=== PATIENT | male | born 1950 | race Caucasian/White ===

== ENCOUNTER 2018-03-13 07:07 | Outpatient (CLI) | payer MEDICARE, MEDICAID, SELFPAY ==
[2018-03-13 09:10] LABS: Anion Gap 11.9 mmol/L (3-11); CO2 23.1 mmol/L (21.0-32.0); CREATININE 3.47 mg/dL (0.70-1.30); Calcium 9.3 mg/dL (8.5-10.1); Chloride 108 mmol/L (98-107); Estimated GFR 17.84 (mL/min/1.73m2); Glucose 281 mg/dL (70-100); Potassium 4.4 mmol/L (3.5-5.1); Sodium 143 mmol/L (136-145)
[2018-03-13 09:16] LABS: BUN 83 mg/dL (7-18)
== END 2018-03-13 07:27 ==
PROVIDERS: PCP Internal Medicine; Visit Provider Internal Medicine
DX: N18.4 Chronic kidney disease, stage 4 (severe) (principal); I10 Essential (primary) hypertension
CPT/HCPCS: 36415; 80048

== ENCOUNTER 2018-04-23 09:01 | Outpatient (REF) | payer MEDICARE, MEDICAID, SELFPAY ==
[2018-04-23 14:38] LABS: Anion Gap 13.4 mmol/L (3-11); CO2 22.6 mmol/L (21.0-32.0); Calcium 10.3 mg/dL (8.5-10.1); Chloride 107 mmol/L (98-107); Estimated GFR 16.78 (mL/min/1.73m2); Glucose 237 mg/dL (70-100); Potassium 4.6 mmol/L (3.5-5.1); Sodium 143 mmol/L (136-145)
[2018-04-23 14:50] LABS: BUN 101 mg/dL (7-18); CREATININE 3.66 mg/dL (0.70-1.30)
== END 2018-04-23 09:21 ==
LOC: NCHCN 09:01
PROVIDERS: PCP Internal Medicine; Visit Provider Internal Medicine Nephrology
DX: N18.4 Chronic kidney disease, stage 4 (severe) (principal)
CPT/HCPCS: 80048

== ENCOUNTER 2018-05-20 23:03 | Emergency (ER) | payer MEDICARE, MEDICAID, SELFPAY ==
[2018-05-20 23:01] VITALS: BP 119/58; PULSE 53; PULSE 56; RESP 19; O2SAT 91
[2018-05-20 23:04] VITALS: BP 119/58; PULSE 55; RESP 18; TEMP 35.9; O2SAT 91
--- NOTE | 2018-05-20 23:07 | W.ED.GENAD ---
Discharge Plan Disposition Patient Disposition: [facility] Condition: Critical Discharge Details Chief Complaint: AMS/LOC Clinical Impression: Non-ST elevation [place] (NSTEMI) Reason For Visit: HELENA Primary Care Provider: Perico Pacheco ED Provider: Kennedy Magallon Home Meds and New Rx's Prescriptions: No Action amlodipine 10 MG tablet 10 mg PO DAILY RF: 0 aspirin 81 MG tablet,delayed release (DR/EC) 81 mg PO DAILY RF: 0 furosemide 40 MG tablet 80 mg PO BID RF: 0 isosorbide mononitrate 30 MG tablet extended release 24 hr 30 mg PO DAILY RF: 0 travoprost [Travatan Z] 2.5 ML drops 1 drp Topical HS RF: 0 allopurinol 100 MG tablet 200 mg PO HS RF: 0 calcitriol 0.5 MCG capsule 0.5 mcg PO DAILY RF: 0 insulin aspart U-100 [Novolog PenFill U-100 Insulin] 100 UNIT/ML cartridge 6 - 12 units SQ AC RF: 0 acetaminophen [Mapap Extra Strength] 500 MG tablet 1 g PO Q6H PRN PRNRF: 0 nitroglycerin [Nitrostat] 0.4 MG tablet, sublingual 0.4 mg Sublingual PRN PRNRF: 0 carvedilol 25 MG tablet 25 mg PO BID RF: 0 clopidogrel [Plavix] 75 MG tablet 75 mg PO DAILY RF: 0 doxazosin 8 MG tablet 8 mg PO DAILY RF: 0 ferrous sulfate 325 MG tablet 325 mg PO DAILY RF: 0 epinephrine 0.3 MG/SYR auto-injector 0.3 mg IM PRN PRNRF: 0 insulin glargine [Lantus U-100 Insulin] 100 UNITS/ML solution 65 units SQ DAILY Qty: 0 RF: 0 atorvastatin [Lipitor] 80 MG tablet 80 mg PO HS RF: 0 acetaminophen-codeine [Tylenol-Codeine #3] 1 TAB tablet 1 tab PO Q4H PRN (Reason: Pain) Qty: 8 RF: 0 lisinopril 10 mg Tablet 10 mg PO BID RF: 0 insulin detemir U-100 [Levemir FlexTouch U-100 Insuln] 100 unit/mL (3 mL) Insulin Pen 90 unit subcut DAILY RF: 0 ticagrelor [Brilinta] 90 mg Tablet 90 mg PO BID RF: 0 Medical Decision Making 67-year-old male presents from home. His states that he went to bed after having an essentially normal day, then awoke stated that he did not feel well, became profoundly diaphoretic, complained of shortness of breath, and then developed garbled speech. As per my HPI, EMS was called, the patient was found to be hypoglycemic and was given D50 en route. His past medical history is notable for coronary artery disease, CVA, recent admission to [facility] with placement of a drug-eluting stent for which she was discharged home at the end of April. His states that since discharge the patient has had frequent episodes of chest pain He arrives with eye opening to verbal command, inappropriate words, moving extremities to command and GCS graded at 11-12. Patient given an additional 50 cc of D10, 500 cc normal saline fluid bolus, referred for CT scan of the head to rule out intracranial hemorrhage, as well as chest x-ray and laboratories. His EKG shows territorial ST segment depressions in leads I, aVL, V4 through V6. Question subtle ST segment elevations in the inferior leads. Patient given aspirin and started on heparin drip. Patients speech improved with correction of hypoglycemia. He complains of bilateral calf cramps for which I have ordered magnesium. CT scan of the head is unremarkable as is CXR. Labs reveal a positive troponin, BUN 111, creatinine 4. Glucose 60. Initiated [facility] [place] approximately 2345h. Repeat EKG reveals some ST segment elevation lead III. Case discussed with on-call cardiology and patient accepted in transfer to Dr. Witt's service. Patient and family informed of need for transfer. They state he wishes to be full code. The patient has had some progressive bradycardia and will start on dobutamine drip. Lab Data Lab results reviewed: Yes I reviewed the patient's lab results. Laboratory Results - last 24 hr 05/20/18 05/20/18 23:31 23:31 WBC 8.79 RBC 4.02 L Hgb 11.5 L Hct 34.9 L MCV 86.8 MCH 28.6 MCHC 33.0 RDW 15.8 H Plt Count 197 MPV 11.6 H Immature Gran % 0.6 Neutrophils % 80.3 Lymphocytes % 8.1 Monocytes % 8.0 Eosinophils % 2.8 Basophils % 0.2 Absolute Neutrophils 7.06 H Absolute Lymphocytes 0.71 L Absolute Monocytes 0.70 Absolute Eosinophils 0.25 Absolute Basophils 0.02 Sodium 142 Potassium 3.8 Chloride 105 Carbon Dioxide 24.6 Anion Gap 12.4 H BUN 111 H* Creatinine 4.06 H* Estimated GFR/1.73 m2 14.89 Glucose 60 L Calcium 10.6 H Magnesium 2.4 Total Bilirubin 0.4 ALT 24 Alkaline Phosphatase 82 Troponin I 0.12 H Total Protein 7.4 Albumin 3.8 ECG Data Attestation: I personally reviewed and interpreted this ECG (s) as follows: Prior ECG tracings: available for review Interpretation: Probable sinus bradycardia with a rate of 54, LVH present, ST segment depression in leads I, aVL, V4 through V6 compared to tracing from February 13, 2017, ST segment depressions are new HPI General Mode of arrival: EMS. Date/Time Provider Initiated Documentation: 05/20/18 23:10. Limitations to Documentation: altered mental status. Information obtained by: patient and EMS. History of Present Illness 67 year old M presents to the emergency department with the chief complaint of Mental status changes and garbled speech, described as moderate, Quality is described as constant, Patient started experiencing this hour(s) and it has been other (Improving). other things that improve symptom(s), (Glucose) HPI Narrative: 67-year-old male who lives at home in [place]. He is brought via EMS. They report that he awoke approximately 1030 and was noted to have some mild slurring of speech and agitation. This worsened. EMS was called, they found her to have a blood glucose of 20 and administered glucose en route with improvement of the patient's symptoms. There is no report of fall. Patient has a history of CVA as well as coronary artery disease and recently had stent placement Related Data Home Medications Medication Instructions Recorded Confirmed allopurinol 200 mg PO HS 06/21/13 05/20/18 amlodipine 10 mg PO DAILY 06/21/13 05/20/18 aspirin 81 mg PO DAILY 06/21/13 05/20/18 calcitriol 0.5 mcg PO DAILY 06/21/13 05/20/18 furosemide 80 mg PO BID 06/21/13 05/20/18 insulin aspart U-100 [Novolog 6 - 12 units SQ AC 06/21/13 05/20/18 PenFill U-100 Insulin] isosorbide mononitrate 30 mg PO DAILY 06/21/13 05/20/18 travoprost [Travatan Z] 1 drp TOPICAL HS 06/21/13 05/20/18 acetaminophen [Mapap Extra 1 g PO Q6H PRN PRN 06/26/13 02/13/17 Strength] carvedilol 25 mg PO BID 03/20/16 05/20/18 clopidogrel [Plavix] 75 mg PO DAILY 03/20/16 02/13/17 doxazosin 8 mg PO DAILY 03/20/16 05/20/18 epinephrine 0.3 mg IM PRN PRN 03/20/16 05/20/18 ferrous sulfate 325 mg PO DAILY 03/20/16 05/20/18 insulin glargine [Lantus U-100 65 units SQ DAILY #0 03/20/16 02/13/17 Insulin] nitroglycerin [Nitrostat] 0.4 mg SUBLINGUAL PRN PRN 03/20/16 05/20/18 acetaminophen-codeine 1 tab PO Q4H PRN #8 tab 01/20/17 02/13/17 [Tylenol-Codeine #3] atorvastatin [Lipitor] 80 mg PO HS 01/20/17 05/20/18 insulin detemir U-100 [Levemir 90 unit SUBCUT DAILY 05/20/18 05/20/18 FlexTouch U-100 Insuln] lisinopril 10 mg PO BID 05/20/18 05/20/18 ticagrelor [Brilinta] 90 mg PO BID 05/20/18 05/20/18 Previous Rx's Medication Instructions Recorded insulin glargine [Lantus U-100 65 units SQ DAILY #0 03/20/16 Insulin] acetaminophen-codeine 1 tab PO Q4H PRN #8 tab 01/20/17 [Tylenol-Codeine #3] Allergies Allergy/AdvReac Type Severity Reaction Status Date / Time amoxicillin Allergy Severe Swelling/Ed Unverified 05/20/18 23:13 katia insect stings Allergy Severe Uncoded 05/20/18 23:13 Review of Systems Review of Systems Unobtainable due to mental condition PFSH Social History Smoking/Tobacco Use Status: Never Exam Narrative Exam Narrative: GEN: Positive voice. Positive gag reflex, slurred speech HEAD: Normocephalic, atraumatic ENT: Mucous membranes moist, oropharynx unremarkable, External ear exam unremarkable EYES: PERRL, EOMI NECK: Full ROM, no JOSÉ LUIS, no menigismus CHEST/RESP: Nontender, clear to auscultation bilateral, no wheeze/rhonchi/rales CARDIOVASCULAR: Regular, bradycardic, 2 out of 6 systolic ejection murmur, rub cesar. 2+ Rad pulse bilateral ABDOMEN: Soft, nontender, no mass. +Bowel sounds. Areas of anterior abdominal wall ecchymosis consistent with subcutaneous administration of medications EXT: Full ROM, no edema, no rash. Muscular spasm/cramps bilateral legs. Neuro: Patient has positive gag reflex. Opens eyes to voice. Speech is slurred. He is able to raise both arms off the bed. No obvious facial droop Psych: Speech slurred l Critical Care Time Total Critical Care Time: 60
--- NOTE | 2018-05-20 23:10 | ED.GENADUL_ITS ---
Discharge Plan Disposition Patient Disposition: [facility] Condition: Critical Discharge Details Chief Complaint: AMS/LOC Clinical Impression: Non-ST elevation [place] (NSTEMI) Reason For Visit: HELENA Primary Care Provider: Perico Pacheco ED Provider: Kennedy Magallon Home Meds and New Rx's Prescriptions: No Action amlodipine 10 MG tablet 10 mg PO DAILY RF: 0 aspirin 81 MG tablet,delayed release (DR/EC) 81 mg PO DAILY RF: 0 furosemide 40 MG tablet 80 mg PO BID RF: 0 isosorbide mononitrate 30 MG tablet extended release 24 hr 30 mg PO DAILY RF: 0 travoprost [Travatan Z] 2.5 ML drops 1 drp Topical HS RF: 0 allopurinol 100 MG tablet 200 mg PO HS RF: 0 calcitriol 0.5 MCG capsule 0.5 mcg PO DAILY RF: 0 insulin aspart U-100 [Novolog PenFill U-100 Insulin] 100 UNIT/ML cartridge 6 - 12 units SQ AC RF: 0 acetaminophen [Mapap Extra Strength] 500 MG tablet 1 g PO Q6H PRN PRNRF: 0 nitroglycerin [Nitrostat] 0.4 MG tablet, sublingual 0.4 mg Sublingual PRN PRNRF: 0 carvedilol 25 MG tablet 25 mg PO BID RF: 0 clopidogrel [Plavix] 75 MG tablet 75 mg PO DAILY RF: 0 doxazosin 8 MG tablet 8 mg PO DAILY RF: 0 ferrous sulfate 325 MG tablet 325 mg PO DAILY RF: 0 epinephrine 0.3 MG/SYR auto-injector 0.3 mg IM PRN PRNRF: 0 insulin glargine [Lantus U-100 Insulin] 100 UNITS/ML solution 65 units SQ DAILY Qty: 0 RF: 0 atorvastatin [Lipitor] 80 MG tablet 80 mg PO HS RF: 0 acetaminophen-codeine [Tylenol-Codeine #3] 1 TAB tablet 1 tab PO Q4H PRN (Reason: Pain) Qty: 8 RF: 0 lisinopril 10 mg Tablet 10 mg PO BID RF: 0 insulin detemir U-100 [Levemir FlexTouch U-100 Insuln] 100 unit/mL (3 mL) Insulin Pen 90 unit subcut DAILY RF: 0 ticagrelor [Brilinta] 90 mg Tablet 90 mg PO BID RF: 0 Medical Decision Making 67-year-old male presents from home. His states that he went to bed after having an essentially normal day, then awoke stated that he did not feel well, became profoundly diaphoretic, complained of shortness of breath, and then developed garbled speech. As per my HPI, EMS was called, the patient was found to be hypoglycemic and was given D50 en route. His past medical history is notable for coronary artery disease, CVA, recent admission to [facility] with placement of a drug-eluting stent for which she was discharged home at the end of April. His states that since discharge the patient has had frequent episodes of chest pain He arrives with eye opening to verbal command, inappropriate words, moving extremities to command and GCS graded at 11-12. Patient given an additional 50 cc of D10, 500 cc normal saline fluid bolus, referred for CT scan of the head to rule out intracranial hemorrhage, as well as chest x-ray and laboratories. His EKG shows territorial ST segment depressions in leads I, aVL, V4 through V6. Question subtle ST segment elevations in the inferior leads. Patient given aspirin and started on heparin drip. Patients speech improved with correction of hypoglycemia. He complains of bilateral calf cramps for which I have ordered magnesium. CT scan of the head is unremarkable as is CXR. Labs reveal a positive troponin, BUN 111, creatinine 4. Glucose 60. Initiated [facility] [place] cardiology consult approximately 2345h. Repeat EKG reveals some ST segment elevation lead III. Case discussed with on-call cardiology and patient accepted in transfer to Dr. Witt's service. Patient and family informed of need for transfer. They state he wishes to be full code. The patient has had some progressive bradycardia and will start on dobutamine drip. Lab Data Lab results reviewed: Yes I reviewed the patient's lab results. Laboratory Results - last 24 hr 05/20/18 05/20/18 23:31 23:31 WBC 8.79 RBC 4.02 L Hgb 11.5 L Hct 34.9 L MCV 86.8 MCH 28.6 MCHC 33.0 RDW 15.8 H Plt Count 197 MPV 11.6 H Immature Gran % 0.6 Neutrophils % 80.3 Lymphocytes % 8.1 Monocytes % 8.0 Eosinophils % 2.8 Basophils % 0.2 Absolute Neutrophils 7.06 H Absolute Lymphocytes 0.71 L Absolute Monocytes 0.70 Absolute Eosinophils 0.25 Absolute Basophils 0.02 Sodium 142 Potassium 3.8 Chloride 105 Carbon Dioxide 24.6 Anion Gap 12.4 H BUN 111 H* Creatinine 4.06 H* Estimated GFR/1.73 m2 14.89 Glucose 60 L Calcium 10.6 H Magnesium 2.4 Total Bilirubin 0.4 ALT 24 Alkaline Phosphatase 82 Troponin I 0.12 H Total Protein 7.4 Albumin 3.8 ECG Data Attestation: I personally reviewed and interpreted this ECG (s) as follows: Prior ECG tracings: available for review Interpretation: Probable sinus bradycardia with a rate of 54, LVH present, ST segment depression in leads I, aVL, V4 through V6 compared to tracing from February 13, 2017, ST segment depressions are new HPI General Mode of arrival: EMS . Date/Time Provider Initiated Documentation: 05/20/18 23:10 . Limitations to Documentation: altered mental status . Information obtained by: patient and EMS . History of Present Illness 67 year old M presents to the emergency department with the chief complaint of Mental status changes and garbled speech, described as moderate, Quality is described as constant, Patient started experiencing this hour(s) and it has been other (Improving). other things that improve symptom(s), (Glucose) HPI Narrative: 67-year-old male who lives at home in [place]. He is brought via EMS. They report that he awoke approximately 1030 and was noted to have some mild slurring of speech and agitation. This worsened. EMS was called, they found her to have a blood glucose of 20 and administered glucose en route with improvement of the patient's symptoms. There is no report of fall. Patient has a history of CVA as well as coronary artery disease and recently had stent placement Related Data Home Medications Medication Instructions Recorded Confirmed allopurinol 200 mg PO HS 06/21/13 05/20/18 amlodipine 10 mg PO DAILY 06/21/13 05/20/18 aspirin 81 mg PO DAILY 06/21/13 05/20/18 calcitriol 0.5 mcg PO DAILY 06/21/13 05/20/18 furosemide 80 mg PO BID 06/21/13 05/20/18 insulin aspart U-100 [Novolog 6 - 12 units SQ AC 06/21/13 05/20/18 PenFill U-100 Insulin] isosorbide mononitrate 30 mg PO DAILY 06/21/13 05/20/18 travoprost [Travatan Z] 1 drp TOPICAL HS 06/21/13 05/20/18 acetaminophen [Mapap Extra 1 g PO Q6H PRN PRN 06/26/13 02/13/17 Strength] carvedilol 25 mg PO BID 03/20/16 05/20/18 clopidogrel [Plavix] 75 mg PO DAILY 03/20/16 02/13/17 doxazosin 8 mg PO DAILY 03/20/16 05/20/18 epinephrine 0.3 mg IM PRN PRN 03/20/16 05/20/18 ferrous sulfate 325 mg PO DAILY 03/20/16 05/20/18 insulin glargine [Lantus U-100 65 units SQ DAILY #0 03/20/16 02/13/17 Insulin] nitroglycerin [Nitrostat] 0.4 mg SUBLINGUAL PRN PRN 03/20/16 05/20/18 acetaminophen-codeine 1 tab PO Q4H PRN #8 tab 01/20/17 02/13/17 [Tylenol-Codeine #3] atorvastatin [Lipitor] 80 mg PO HS 01/20/17 05/20/18 insulin detemir U-100 [Levemir 90 unit SUBCUT DAILY 05/20/18 05/20/18 FlexTouch U-100 Insuln] lisinopril 10 mg PO BID 05/20/18 05/20/18 ticagrelor [Brilinta] 90 mg PO BID 05/20/18 05/20/18 Previous Rx's Medication Instructions Recorded insulin glargine [Lantus U-100 65 units SQ DAILY #0 03/20/16 Insulin] acetaminophen-codeine 1 tab PO Q4H PRN #8 tab 01/20/17 [Tylenol-Codeine #3] Allergies Allergy/AdvReac Type Severity Reaction Status Date / Time amoxicillin Allergy Severe Swelling/Ed Unverified 05/20/18 23:13 katia insect stings Allergy Severe Uncoded 05/20/18 23:13 Review of Systems Review of Systems Unobtainable due to mental condition PFSH Social History Smoking/Tobacco Use Status: Never Exam Narrative Exam Narrative: GEN: Positive voice. Positive gag reflex, slurred speech HEAD: Normocephalic, atraumatic ENT: Mucous membranes moist, oropharynx unremarkable, External ear exam unremarkable EYES: PERRL, EOMI NECK: Full ROM, no JOSÉ LUIS, no menigismus CHEST/RESP: Nontender, clear to auscultation bilateral, no wheeze/rhonchi/rales CARDIOVASCULAR: Regular, bradycardic, 2 out of 6 systolic ejection murmur, rub cesar. 2+ Rad pulse bilateral ABDOMEN: Soft, nontender, no mass. +Bowel sounds. Areas of anterior abdominal wall ecchymosis consistent with subcutaneous administration of medications EXT: Full ROM, no edema, no rash. Muscular spasm/cramps bilateral legs. Neuro: Patient has positive gag reflex. Opens eyes to voice. Speech is slurred. He is able to raise both arms off the bed. No obvious facial droop Psych: Speech slurred l Critical Care Time Total Critical Care Time: 60
[2018-05-20 23:20] VITALS: BP 113/54; PULSE 47; PULSE 54; RESP 18; O2SAT 94
--- NOTE | 2018-05-20 23:22 | DI.RAD_ITS ---
SYMPTOM/DIAGNOSIS: MS CHANGES CHEST X-RAY: Portable AP view. The heart appears enlarged. The patient is status post CABG. The lungs are clear. No effusions or pneumothoraces are identified. IMPRESSION: Apparent cardiomegaly. This may in part be due to the patient positioning and technique. The lungs are clear.
--- NOTE | 2018-05-20 23:25 | DI.CT_ITS ---
SYMPTOM/DIAGNOSIS: PREV CVA. MS CHANGES, GARBLED SPEECH CT BRAIN: Noncontrast. Comparison 02/13/17 Age related cerebral atrophy and small vessel ischemic disease are present. Old lacunar infarcts are seen in the left basal ganglia. No acute hemorrhage, infarct, midline shift or mass effect is identified. The calvarium is intact. There is mild mucosal thickening in the left maxillary sinus. Remaining visualized nasal sinuses are clear. IMPRESSION: No acute intracranial process.
[2018-05-20 23:31] VITALS: BP 119/55; PULSE 47; PULSE 49; RESP 18; O2SAT 95
--- NOTE | 2018-05-20 23:33 | DI.VRAD_ITS ---
EXAM: XR Chest, 1 View EXAM DATE/TIME: 05/20/2018 11:27 PM CLINICAL HISTORY: 67 years old, male; Pain; Chest pain; On breathing; Patient HX: Ms changes. TECHNIQUE: XR of the chest, 1 view. COMPARISON: CR PORTABLE CHEST ONE VIEW 02/13/2017 1:11 PM FINDINGS: Lungs: Unremarkable. No consolidation. Pleural space: Unremarkable. No pleural effusion. No pneumothorax. Heart/Mediastinum: Cardiac enlargement, new from prior. Bones/joints: Status post median sternotomy. Chronic osseous changes. IMPRESSION: Cardiac enlargement. Dictated and Authenticated by: Bobo Arellano MD. Ordering:FREDI ATKINS MD
--- NOTE | 2018-05-20 23:38 | DI.VRAD_ITS ---
EXAM: CT Head Without Intravenous Contrast EXAM DATE/TIME: 05/20/2018 11:26 PM CLINICAL HISTORY: 67 years old, male; Signs and symptoms; Other: Ms changes TECHNIQUE: Axial computed tomography images of the head/brain without intravenous contrast. All CT scans at this facility use at least one of these dose optimization techniques: automated exposure control; mA and/or kV adjustment per patient size (includes targeted exams where dose is matched to clinical indication); or iterative reconstruction. Coronal and sagittal reformatted images were created and reviewed. COMPARISON: No relevant prior studies available. FINDINGS: Brain: Mild age-related involutional changes of the brain are present. Scattered white matter hypodensities likely correspond to changes from multiple sclerosis as reported in the history, and/or chronic microangiopathy. No hemorrhage or midline shift. Ventricles: Normal. No ventriculomegaly. Bones/joints: Normal. No acute fracture. Sinuses: Normal as visualized. No acute sinusitis. Mastoid air cells: Left mastoid air cells are non-pneumatized. Soft tissues: Normal. Vasculature: Atherosclerosis. IMPRESSION: No acute intracranial findings. Dictated and Authenticated by: Bobo Arellano MD. Ordering:FREDI ATKINS MD
[2018-05-20 23:39] LABS: Abs Immature Grans 0.05 k/cumm (0.0-0.09); Absolute Basophil Count 0.02 k/cumm (0.0-0.2); Absolute Eosinophil Count 0.25 k/cumm (0.0-0.7); Absolute Lymphocyte Count 0.71 k/cumm (1.2-3.4); Absolute Neutrophil Count 7.06 k/cumm (1.2-6.7); Basophils % 0.2; Eosinophils % 2.8; HCT 34.9 % (40.0-50.0); HGB 11.5 g/dL (13.5-17.5); Immature Grans % 0.6; Lymphocytes % 8.1; Mean Corpuscular Hemoglobin 28.6 pg (27.0-33.0); Mean Corpuscular Volume 86.8 fL (80-95); Mean Platelet Volume 11.6 fL (8.0-11.0); Neutrophils % 80.3; Platelet Count 197 x1000/uL (130-400); RBC 4.02 m/cumm (4.50-6.00); RBC Distribution Width 15.8 % (11.8-14.1); White Blood Cell Count 8.79 k/cumm (4.4-10.8)
[2018-05-20 23:46] VITALS: BP 118/53; PULSE 44; PULSE 50; RESP 15; O2SAT 97
[2018-05-20] MEDS: MAGNESIUM SULFATE 2 GM/50 ML BAG IVPB (23:50)
[2018-05-20] MEDS: Normal Saline 1,000 ML 500 ML IV (23:51)
[2018-05-20] MEDS: DEXTROSE 5%-0.45% SALINE 1,000 ML 125 ML IV (23:52)
[2018-05-20 23:54] LABS: ALT 24 U/L (12-78); Albumin 3.8 g/dL (3.4-5.0); Alkaline Phosphatase 82 U/L (46-116); Anion Gap 12.4 mmol/L (3-11); Bilirubin, Total 0.4 mg/dL (0.2-1.0); CO2 24.6 mmol/L (21.0-32.0); Calcium 10.6 mg/dL (8.5-10.1); Chloride 105 mmol/L (98-107); Estimated GFR 14.89 (mL/min/1.73m2); Glucose 60 mg/dL (70-100); Magnesium 2.4 mg/dL (1.8-2.4); Potassium 3.8 mmol/L (3.5-5.1); Sodium 142 mmol/L (136-145); Total Protein 7.4 g/dL (6.4-8.2)
[2018-05-20 23:55] LABS: BUN 111 mg/dL (7-18); Troponin I 0.12 ng/mL (0.00-0.06)
[2018-05-20 23:56] LABS: CREATININE 4.06 mg/dL (0.70-1.30)
[2018-05-21] VITALS (28 sets, daily range): BP systolic 109–137; BP diastolic 43–54; PULSE 38–56; RESP 14–18; TEMP 36; O2SAT 2–99
[2018-05-21 00:01] LABS: NT-proBNP 2592 pg/mL
[2018-05-21 00:06] LABS: AST 32 U/L (15-37)
[2018-05-21] MEDS: Aspirin 81 MG CHEW (00:12)
[2018-05-21 00:40] LABS: PTT Activated 22.7 sec (21.0-31.4)
[2018-05-21] MEDS: DEXTROSE 10%-WATER 500 ML 50 ML IV (00:47)
== END 2018-05-21 03:00 | disposition short-term general hospital (02) ==
PROVIDERS: Emergency Provider Emergency Medicine; PCP Internal Medicine
DX: I21.4 Non-ST elevation (NSTEMI) myocardial infarction (principal); E11.649 Type 2 diabetes mellitus with hypoglycemia without coma; R00.1 Bradycardia, unspecified; R47.81 Slurred speech; I12.9 Hypertensive chronic kidney disease with stage 1 through stage 4 chronic kidney disease, or unspecified chronic kidney disease; N18.4 Chronic kidney disease, stage 4 (severe); E11.22 Type 2 diabetes mellitus with diabetic chronic kidney disease; Z79.4 Long term (current) use of insulin; I25.10 Atherosclerotic heart disease of native coronary artery without angina pectoris; Z95.5 Presence of coronary angioplasty implant and graft; R40.2422 Glasgow coma scale score 9-12, at arrival to emergency department; Z86.73 Personal history of transient ischemic attack (TIA), and cerebral infarction without residual deficits
CPT/HCPCS: 36416; 80053; 82962; 93005; 96361; 96365; 96366; 96368; 96376; 99291; 70450; 71045; 83735; 83880; 84484; 85025; 85730; 93010; J1250

== ENCOUNTER 2018-07-15 01:37 | Emergency (ER) | payer MEDICARE, MEDICAID, SELFPAY ==
[2018-07-15] VITALS (17 sets, daily range): BP systolic 93–142; BP diastolic 54–78; PULSE 88–113; RESP 12–25; TEMP 36.4; O2SAT 93–100
--- NOTE | 2018-07-15 01:50 | W.ED.GENAD ---
Discharge Plan Disposition Patient Disposition: [facility] Condition: Critical Discharge Details Clinical Impression: ACS (acute coronary syndrome) Primary Care Provider: Perico Pacheco ED Provider: Khanh Gerardo Home Meds and New Rx's Prescriptions: No Action amlodipine 10 MG tablet 10 mg PO DAILY RF: 0 aspirin 81 MG tablet,delayed release (DR/EC) 81 mg PO DAILY RF: 0 furosemide 40 MG tablet 120 mg PO BID RF: 0 isosorbide mononitrate 30 MG tablet extended release 24 hr 120 mg PO DAILY RF: 0 Travatan Z 2.5 ML drops 1 drp Topical HS RF: 0 allopurinol 100 MG tablet 200 mg PO HS RF: 0 calcitriol 0.5 MCG capsule 0.5 mcg PO DAILY RF: 0 Novolog PenFill U-100 Insulin 100 UNIT/ML cartridge 6 - 12 units SQ AC RF: 0 acetaminophen [Mapap Extra Strength] 500 MG tablet 1 g PO Q6H PRN PRNRF: 0 nitroglycerin [Nitrostat] 0.4 MG tablet, sublingual 0.4 mg Sublingual PRN PRNRF: 0 doxazosin 8 MG tablet 8 mg PO DAILY RF: 0 ferrous sulfate 325 MG tablet 325 mg PO DAILY RF: 0 epinephrine 0.3 MG/SYR auto-injector 0.3 mg IM PRN PRNRF: 0 rosuvastatin 40 mg Tablet 40 mg PO DAILY RF: 0 ranolazine 500 mg Tablet Extended Release 12 Hr 500 mg PO BID RF: 0 metoprolol succinate 50 mg Cap,Sprinkle,Er 24hr Dose Pack 50 mg PO DAILY RF: 0 lisinopril 10 mg Tablet 5 mg PO DAILY RF: 0 Levemir FlexTouch U-100 Insuln 100 unit/mL (3 mL) Insulin Pen 25 unit subcut DAILY RF: 0 Brilinta 90 mg Tablet 90 mg PO BID RF: 0 Discharge Data Discharge Date/Time-TO BE ENTERED AT DEPARTURE: 07/15/18 04:02 Medical Decision Making 68 yo male with hx of cad with most recent stent placed last April at [facility] comes in with chest pain. He states he has had pain with exertion throughout most of the day today and tonight suddenly had severe worsening of pain about an hour or so ago. His ekg is showing st elevations in anterior leads and acr with diffuse depressions. He took multiple doses of nitro at home without significant relief of pain. will treat as acs, pain has been going on for over 12 hours so unclear if he is lytic candidiate. Will give asa, hold on plavix as he takes brilanta until i discuss with cards at [facility] as well as if we should give lytics. Heparin given spoke with Dr. conway from cardiology at [facility] who recommended holding on second antiplatelet given he had his night dose of brilanta. After 12 hours of pain we decided to hold on lytics at this time. dr. Hinojosa is the accepting telephone clerk. [facility] is not flying so patient will go by ground ambulance. Pt remains HD stable, still has 5/10 chest pain pt's pain now 3/10 on 15mcg/min nitro. he does confirm with me that he is full code. [facility] will be transferring the patient to [facility]. His chest xray on my read shows chf and room air satruations was 88% on room air so placed on o2 ,given 100mg IV lasix. As he was being placed in the ambulance his labs came back showing acute renal failure with creatinine of 6, troponin elevated over 0.4. Labs relayed by phone to Dr. conway from cardiology at [facility] Differential Diagnosis acs, nstemi, stemi, dissection Imaging Data Radiologic Study: Attestation: I personally reviewed and interpreted this imaging study as follows: Imaging: X-Ray My impression: chf Lab Data Lab results reviewed: Yes I reviewed the patient's lab results. ECG Data Attestation: I personally reviewed and interpreted this ECG (s) as follows: Prior ECG tracings: available for review Interpretation: st elevation in avr and anterior leads and diffuse st depressions, sinus rhythm, rate of 94 HPI General Mode of arrival: ambulatory. Date/Time Provider Initiated Documentation: 07/15/18 01:39. Limitations to Documentation: no limitations. Information obtained by: patient. History of Present Illness 68 year old M presents to the emergency department with the chief complaint of chest pain, described as moderate, Quality is described as crushing and sharp, and is localized to the chest. Patient reports no radiation. Patient started experiencing this hour(s) (1) and it has been intermittent. No relieving factors improve symptom(s), No exacerbating factors reported . Patient did receive the following treatments prior to arrival, other (nitroglycerine at home) Related Data Home Medications Medication Instructions Recorded Confirmed Novolog PenFill U-100 Insulin 6 - 12 units SQ AC 06/21/13 07/15/18 Travatan Z 1 drp TOPICAL HS 06/21/13 07/15/18 allopurinol 200 mg PO HS 06/21/13 07/15/18 amlodipine 10 mg PO DAILY 06/21/13 07/15/18 aspirin 81 mg PO DAILY 06/21/13 07/15/18 calcitriol 0.5 mcg PO DAILY 06/21/13 07/15/18 furosemide 120 mg PO BID 06/21/13 07/15/18 isosorbide mononitrate 120 mg PO DAILY 06/21/13 07/15/18 acetaminophen [Mapap Extra 1 g PO Q6H PRN PRN 06/26/13 07/15/18 Strength] doxazosin 8 mg PO DAILY 03/20/16 07/15/18 epinephrine 0.3 mg IM PRN PRN 03/20/16 07/15/18 ferrous sulfate 325 mg PO DAILY 03/20/16 07/15/18 nitroglycerin [Nitrostat] 0.4 mg SUBLINGUAL PRN PRN 03/20/16 07/15/18 insulin detemir U-100 [Levemir 25 unit SUBCUT DAILY 05/20/18 07/15/18 FlexTouch U-100 Insuln] lisinopril 5 mg PO DAILY 05/20/18 07/15/18 ticagrelor [Brilinta] 90 mg PO BID 05/20/18 07/15/18 metoprolol succinate 50 mg PO DAILY 07/15/18 07/15/18 ranolazine 500 mg PO BID 07/15/18 07/15/18 rosuvastatin 40 mg PO DAILY 07/15/18 07/15/18 Allergies Allergy/AdvReac Type Severity Reaction Status Date / Time amoxicillin Allergy Severe Swelling/Ed Unverified 07/15/18 02:10 katia insect stings Allergy Severe Uncoded 07/15/18 02:10 General JEANNE: 2 Review of Systems Review of Systems All systems reviewed & are unremarkable except as noted in HPI and below Constitutional Denies chills, Denies fever(s) and Denies weakness Eyes Denies loss of vision ENT Denies change in voice Gastrointestinal Denies abdominal pain and Denies nausea Genitourinary Denies dysuria Musculoskeletal Denies joint swelling Neurologic Denies loss of vision and Denies weakness Psychiatric Denies depression Endocrine Denies cold intolerance and Denies heat intolerance Allergic/Immunologic Denies urticaria [facility] Social History Smoking/Tobacco Use Status: Never Exam Const Orientation: alert HENMT Head: normal to inspection Ears: external ears normal General nose exam: external nose normal Mouth: moist mucous membranes Eyes General: appearance normal, both eyes and all related structures Neck Neck: normal visual inspection Resp Effort & Inspection: normal respiratory effort and able to speak in complete sentences Cardio Rate: regular rate Skin General skin exam: no rashes or lesions noted Neuro General: alert and oriented x3 Extrem General: normal to inspection Psych Mental Status: mental status grossly normal Critical Care Time Critical Care Time: Yes Total Critical Care Time: 60 Attestation: time spent reviewing ekg, labs work and frequent reassessments in patient with acute coronary syndrome and potential to deteriorate at any time
[2018-07-15] MEDS: fentaNYL 100 MCG/2 ML VIAL IVP (01:52)
--- NOTE | 2018-07-15 02:01 | DI.RAD_ITS ---
SYMPTOMS/DIAGNOSIS: CHEST PAIN PORTABLE AP CHEST: Comparison is 05/20/18. There is poor inspiration. The cardiac silhouette is within normal limits. Sternal wires are in place. The pulmonary vasculature is unremarkable. There are bilateral opacities present. This may in part be due to poor inspiration but the possibility of atelectasis or pneumonia can not be excluded. No effusions or pneumothoraces are identified. IMPRESSION: Bilateral pulmonary opacities. This may be due to poor inspiration and crowding of the pulmonary vasculature but atelectasis or pneumonia should also be considered. Please correlate clinically.
[2018-07-15] MEDS: Aspirin 81 MG CHEW (02:07)
[2018-07-15 02:08] LABS: Abs Immature Grans 0.02 k/cumm (0.0-0.09); Absolute Basophil Count 0.01 k/cumm (0.0-0.2); Absolute Eosinophil Count 0.18 k/cumm (0.0-0.7); Absolute Lymphocyte Count 1.11 k/cumm (1.2-3.4); Absolute Monocyte Count 0.54 k/cumm (0.11-0.7); Absolute Neutrophil Count 6.56 k/cumm (1.2-6.7); Basophils % 0.1; Eosinophils % 2.1; HCT 34.3 % (40.0-50.0); HGB 11.4 g/dL (13.5-17.5); Immature Grans % 0.2; Lymphocytes % 13.2; Mean Corp. HGB Concentration 33.2 g/dL (32.0-36.0); Mean Corpuscular Volume 87.3 fL (80-95); Mean Platelet Volume 12.7 fL (8.0-11.0); Monocytes % 6.4; Platelet Count 134 x1000/uL (130-400); RBC 3.93 m/cumm (4.50-6.00); RBC Distribution Width 15.2 % (11.8-14.1); White Blood Cell Count 8.42 k/cumm (4.4-10.8)
[2018-07-15 02:21] LABS: INR 1.1 (0.9-1.1); PTT Activated 23.6 sec (21.0-31.4); Prothrombin Time 10.7 sec (9.3-11.0)
[2018-07-15 02:33] LABS: ALT 18 U/L (12-78); AST 14 U/L (15-37); Albumin 3.6 g/dL (3.4-5.0); Alkaline Phosphatase 79 U/L (46-116); Anion Gap 14.9 mmol/L (3-11); Bilirubin, Direct 0.09 mg/dL (0.00-0.20); Bilirubin, Total 0.2 mg/dL (0.2-1.0); CO2 19.1 mmol/L (21.0-32.0); Calcium 10.4 mg/dL (8.5-10.1); Chloride 109 mmol/L (98-107); Glucose 219 mg/dL (70-100); Lipase 297 U/L (73-393); Magnesium 2.2 mg/dL (1.8-2.4); NT-proBNP 2072 pg/mL; Potassium 4.9 mmol/L (3.5-5.1); Sodium 143 mmol/L (136-145)
[2018-07-15 02:36] LABS: BUN 112 mg/dL (7-18); Troponin I 0.49 ng/mL (0.00-0.06)
--- NOTE | 2018-07-15 03:07 | DI.VRAD_ITS ---
EXAM: XR Chest, 1 View EXAM DATE/TIME: 07/15/2018 1:53 AM CLINICAL HISTORY: 68 years old, male; Pain; Chest pain; Prior surgery TECHNIQUE: XR of the chest, 1 view. COMPARISON: [facility] XR CHEST 1V IN DI DEPT 05/20/2018 11:19 PM FINDINGS: Lungs: Low lung volumes. Ill-defined bilateral opacities, at least partially contributed by prominent pulmonary vasculature. Pleural space: No pleural effusion. No pneumothorax. Heart/Mediastinum: Unremarkable. No cardiomegaly. Bones/joints: Degenerative changes within thoracic spine. Other findings: Status post thoracotomy. IMPRESSION: Low lung volumes, likely suboptimal inspiration. Bilateral ill-defined opacities, likely due to to atelectasis/prominent vessels, however, superimposed bibasilar infiltrates cannot be excluded. Dictated and Authenticated by: David Ferguson MD. Ordering:JUAN M Cassidy MD
== END 2018-07-15 04:02 | disposition short-term general hospital (02) ==
PROVIDERS: Emergency Provider Emergency Medicine; PCP Internal Medicine
DX: I24.9 Acute ischemic heart disease, unspecified (principal); N17.9 Acute kidney failure, unspecified; I25.10 Atherosclerotic heart disease of native coronary artery without angina pectoris; Z95.5 Presence of coronary angioplasty implant and graft; E10.22 Type 1 diabetes mellitus with diabetic chronic kidney disease; I12.9 Hypertensive chronic kidney disease with stage 1 through stage 4 chronic kidney disease, or unspecified chronic kidney disease; N18.4 Chronic kidney disease, stage 4 (severe)
CPT/HCPCS: 36415; 80053; 80076; 83690; 93005; 96365; 96368; 96375; 99291; 71045; 83735; 83880; 84484; 85025; 85610; 85730; 93010; J3010